=== PATIENT | male | born 1975 | race Caucasian/White ===

== ENCOUNTER → 2019-08-26 11:03 | Outpatient (CLI) | payer OTHER, SELFPAY ==
--- NOTE | 2019-08-26 11:09 | DI.RAD.S_ITS ---
PROCEDURE: XR KNEE RT 3V INDICATIONS: Pain, r/o fracture TECHNIQUE: 3 views of the knee were acquired. COMPARISON: None. FINDINGS: Bones: No fractures or dislocations. No suspicious bony lesions. Soft tissues: No joint effusion. No suspicious soft tissue calcifications. IMPRESSION: No fracture. No osseous lesion. If symptoms and/or clinical suspicion for pathology persists, further assessment with repeat radiographs (7-10 days) or advanced imaging (e.g. CT, MRI or bone scan) may be helpful. Dictated by: Kaylin Arredondo MD, PhD on 08/26/2019 at 12:02 Approved by: Kaylin Arredondo MD, PhD on 08/26/2019 at 12:02
== END ==
PROVIDERS: Visit Provider Physician Assistant
DX: S89.91XA Unspecified injury of right lower leg, initial encounter (principal); M25.561 Pain in right knee
CPT/HCPCS: 73562